=== PATIENT | male | born 1970 | race American Indian/Alaskan Native ===

== ENCOUNTER 2017-09-01 15:48 | Emergency (ER) | payer SELFPAY ==
[~2017-09-01 15:48] MED LIST: SUBLIMAZE ONE
[2017-09-01] MEDS ORDERED: NACL 0.9% 1000 ML 1,000 ML IV ONE (16:00)
[2017-09-01] MEDS ORDERED: SUBLIMAZE IV ONE (16:01)
[2017-09-01 16:23] LABS: Basophils # (Auto) 0.1 K/mm3 (0.0-0.1); Eosinophils # (Auto) 0.1 K/mm3 (0.0-0.4); Eosinophils % (Auto) 1.1 % (0.0-4.3); Hematocrit 43.2 % (35.5-45.6); Hemoglobin 14.1 gm/dl (11.8-15.2); Lymphocytes # (Auto) 1.9 K/mm3 (1.2-5.4); Lymphocytes % (Auto) 37.9 % (13.4-35.0); Mean Corpuscular HGB Conc 33 % (32-34); Mean Corpuscular Hemoglobin 27 pg (28-32); Mean Corpuscular Volume 83 fl (84-94); Monocytes # (Auto) 0.3 K/mm3 (0.0-0.8); Monocytes % (Auto) 5.9 % (0.0-7.3); Platelet Count 179 K/mm3 (140-440); Red Cell Distribution Width 15.4 % (13.2-15.2)
[2017-09-01] MEDS ORDERED: BOOSTRIX IM ONE (16:23)
[2017-09-01] MEDS ORDERED: NACL 0.9% 500 ML IR ONE (16:25)
[2017-09-01] MEDS ORDERED: XYLOCAINE 1% 20 mL ONE (16:25)
[2017-09-01] MEDS ORDERED: XYLOCAINE 1% 20 mL INFILTRATI ONE (16:27)
[2017-09-01] MEDS ORDERED: MARCAINE 0.5% 30 ML INFILTRATI ONE (16:30)
--- NOTE | 2017-09-01 16:30 | Emergency Department Report ---
- General Chief Complaint: Wound/Laceration Stated Complaint: toe injury Time Seen by Provider: 09/01/17 16:19 Source: patient, family Mode of arrival: Wheelchair Limitations: Physical Limitation - History of Present Illness Initial Comments: 30 minutes prior to arrival, patient was cutting the lawn when his left foot slipped and went under the lawnmower. He cut his first and second toe. Patient is brought in for evaluation. Unsure of his last tetanus. Not on blood thinners. - Related Data Previous Rx's Medication Instructions Recorded Last Taken Type HYDROcodone/APAP 5-325 [[place] 1 each PO Q6HR PRN #12 tablet 09/01/17 Unknown Rx 5/325] Allergies Allergy/AdvReac Type Severity Reaction Status Date / Time No Known Allergies Allergy Verified 09/01/17 15:58 ED Review of Systems ROS: Stated complaint: toe injury Other details as noted in HPI Skin: other (avulsion wound to left 1st toe with exposed bone. Superficial laceration to the left 2nd toe. Flex/ex and sensation intact in both toes. ) ED Past Medical Hx - Past Medical History Previous Medical History?: No - Surgical History Past Surgical History?: No - Social History Smoking Status: Never Smoker Substance Use Type: None - Medications Home Medications: Home Medications Medication Instructions Recorded Confirmed Last Taken Type HYDROcodone/APAP 5-325 [[place] 1 each PO Q6HR PRN #12 tablet 09/01/17 Unknown Rx 5/325] ED Physical Exam - General Limitations: Physical Limitation - Extremities Exam Extremities exam: Present: other (3 cm avulsion wound to left 1st toe with exposed bone. Superficial laceration to the left 2nd toe. Flex/ex and sensation intact in both toes. ) ED Course Vital Signs 09/01/17 15:50 Temperature 98.0 F Pulse Rate 82 Respiratory 17 Rate Blood Pressure 130/99 [Left] - Laceration /Wound Repair Left Volar Toe Wound Location: lower extremity Wound's Depth, Shape: nail-avulsed, contused tissue Wound Explored: contaminated Irrigated w/ Saline (ccs): 1,000 Betadine Prep?: Yes Anesthesia: 1% Lidocaine (bupivicaine) Volume Anesthetic (ccs): 10 Wound Debrided: minimal Layer Closure?: No Sterile Dressing Applied?: Yes ED Medical Decision Making - Lab Data Result diagrams: 09/01/17 16:09/01/17 16:06 - Radiology Data Radiology results: report reviewed, image reviewed - Medical Decision Making 46-year-old male with no significant past medical history that presents to the ER with wounds to his left foot. Vital signs are stable. Patient is in mild distress. 3 cm avulsion wound to the left first metatarsal with exposed bone. Flexion/extension and sensation are intact in the toe. Superficial laceration noted to the left second toe that do not require intervention. Wounds were copiously irrigated with 1 L of normal saline plus Betadine. A Vaseline gauze dressing was applied with a bulky wrap over it. Imaging shows fractures of the first and second toe with mild displacement. Patient will be started on Keflex and given wound clinic and orthopedic follow-up. He will be placed in a postop shoe. I discussed the case with Dr. Wilson, orthopedics, who is in agreement with the treatment plan. Tetanus was updated in the ER. Critical care attestation.: If time is entered above; I have spent that time in minutes in the direct care of this critically ill patient, excluding procedure time. ED Disposition Clinical Impression: Open fracture of metatarsal bone of left foot, Closed fracture of metatarsal bone of left foot Disposition: DC-01 TO HOME OR SELFCARE Is pt being admited?: No Condition: Stable Instructions: Acute Wound Care (ED) Additional Instructions: Change the dressing once a day unless it gets dirty. If that happens, then you can change it more often. Place your foot in a bag when showering to keep it dry. Follow up with orthopedics and the wound care clinic for further management. Prescriptions: HYDROcodone/APAP 5-325 [[place] 5/325] 1 each PO Q6HR PRN #12 tablet PRN Reason: Pain Referrals: [facility] [Outside] - 3-5 Days ENMA WILSON MD [Staff Physician] - 3-5 Days
[2017-09-01] MEDS ORDERED: NACL 0.9% IR ONE (16:37)
[2017-09-01] MEDS ORDERED: MARCAINE 0.5% INFILTRATI ONE (16:40)
--- NOTE | 2017-09-01 16:42 | XRay Report ---
FINAL REPORT EXAM: XR FOOT 3+V LT HISTORY: laceration TECHNIQUE: Three views of the left foot PRIORS: None. FINDINGS: There is soft tissue defect at the 1st 2nd toes. There is comminuted acute fracture tuft distal phalanx of the 2nd toe. There is a linear nondisplaced fracture tuft distal phalanx of the 1st toe. No radiopaque foreign bodies are identified. The joint spaces are within normal limits. IMPRESSION: Soft tissue defects 1st and 2nd toes Fracture tuft distal phalanx of the 2nd and 1st toes. No radiopaque foreign bodies are identified
[2017-09-01 16:46] LABS: Alanine Aminotransferase 10 units/L (7-56); Albumin 3.8 g/dL (3.9-5); BUN/Creatinine Ratio 26; Blood Urea Nitrogen 18 mg/dL (9-20); Calcium 8.6 mg/dL (8.4-10.2); Hemolysis Index 11
[2017-09-01] MEDS ORDERED: KEFLEX PO ONE ×2 (17:08→17:30)
[2017-09-01 17:50] VITALS: BP 143/71
[2017-09-01] MEDS ORDERED: NACL 0.9% 1000 ML 1,000 ML ONE (18:11)
== END 2017-09-01 18:29 | disposition home or self-care (01) ==
LOC: ED 15:48
DX: S92.312B Displaced fracture of first metatarsal bone, left foot, initial encounter for open fracture (principal); S92.322B Displaced fracture of second metatarsal bone, left foot, initial encounter for open fracture; W28.XXXA Contact with powered lawn mower, initial encounter; Y93.89 Activity, other specified; Y99.8 Other external cause status; Y92.89 Other specified places as the place of occurrence of the external cause
CPT/HCPCS: 36415; 73630; 80053; 85025; 86850; 86900; 86901; 90471; 90715; 99284; J3010; J7030